=== PATIENT | male | born 1965 | race Caucasian/White ===

== ENCOUNTER 2016-11-11 09:53 | Outpatient (CLI) | payer BC ==
[2016-11-11 10:48] LABS: #Eosinphils 0.1 thou/uL (0.0-0.7); #Lymphocytes 2.3 thou/uL (1.20-3.40); #Monocytes 0.6 thou/uL (0.11-0.59); #Neutrophils 2.5 thou/uL (1.40-6.50); %Basophils 0.8 % (0.0-1.0); %Eosinophils 2.5 % (0.0-10.0); %Monocytes 10.2 % (0.0-10.0); Mean Platelet Volume 6.7 fL (7.4-10.4); Red Blood Cell (RBC) Count 4.59 mill/uL (4.70-6.10); White Blood Cell (WBC) Count 5.6 thou/uL (4.8-10.8)
[2016-11-11 11:05] LABS: ALT (SGPT) 70 U/L (0-55); AST (SGOT) 20 U/L (5-34); Alkaline Phosphatase 74 U/L (40-150); Anion Gap 14 mmol/L (10-20); BUN (Urea Nitrogen) 24 mg/dL (8.9-20.6); Bilirubin, Total 0.9 mg/dL (0.2-1.2); Calc. Creatinine Clearance 0 mL/min (70-130); Calcium 9.6 mg/dL (7.8-10.44); Carbon Dioxide 25 mmol/L (22-29); Chloride 105 mmol/L (98-107); Estimated GFR-MDRD 85; LDL Cholesterol, Calculated 100 mg/dL; Protein, Total 7.5 g/dL (6.0-8.3)
== END 2016-11-11 09:54 | disposition home or self-care (01) ==
LOC: HPCALD 09:53
PROVIDERS: ATTEND Family Medicine
DX: Z12.5 Encounter for screening for malignant neoplasm of prostate (principal); I10 Essential (primary) hypertension
CPT/HCPCS: 36415; 80053; 80061; 85025; G0103

== ENCOUNTER 2019-07-06 16:22 | Emergency (ER) | payer BC ==
[2019-07-06] MEDS ORDERED: Triple Antibiotic Oint 1 GM Packet ONE (16:45)
[2019-07-06] MEDS ORDERED: Phenylephrine HCL 10 MG/ML VIAL ONE (16:45)
[2019-07-06] MEDS ORDERED: Adacel (T-DAP) 0.5 ML SYRINGE ONE (16:45)
== END 2019-07-06 16:56 | disposition home or self-care (01) ==
LOC: BURERS 16:22
DX: T25.231A Burn of second degree of right toe(s) (nail), initial encounter (principal); I10 Essential (primary) hypertension; G47.30 Sleep apnea, unspecified; F17.220 Nicotine dependence, chewing tobacco, uncomplicated; X10.0XXA Contact with hot drinks, initial encounter
CPT/HCPCS: 16020; 90471; 90715; J2370